=== PATIENT | male | born 1950 | race Caucasian/White ===

== ENCOUNTER 2021-04-06 09:52 | Day surgery (SDC) | payer MEDICARE, BC ==
[2021-04-06] MEDS ORDERED: Lidocaine 1% PF 5 ML VIAL ONE (10:29)
[2021-04-06] MEDS ORDERED: Sodium Bicarbonate 2.5 MEQ/5 ML VIAL ONE (10:30)
[2021-04-06 10:36] VITALS: BP 108/69; TEMP 97.5
[2021-04-07] MEDS ORDERED: FLU VACC QS2021-22(65YR UP)/PF 240 MCG/0.7 ML SYRINGE IM ONE (11:00)
== END 2021-04-06 12:15 | disposition home or self-care (01) ==
LOC: CSHRAD 09:52
PROVIDERS: ATTEND Surgery
DX: M54.50 Low back pain, unspecified (principal); M62.81 Muscle weakness (generalized); I70.0 Atherosclerosis of aorta; K57.30 Diverticulosis of large intestine without perforation or abscess without bleeding; Z98.1 Arthrodesis status
CPT/HCPCS: 62304; 72132

== ENCOUNTER 2021-10-20 11:08 | Outpatient (CLI) | payer MEDICARE, BC | END 2021-10-20 11:09 | disposition home or self-care (01) | LOC: CSHSPEC 11:08 | PROVIDERS: ATTEND Internal Medicine Rheumatology | DX: M06.9 Rheumatoid arthritis, unspecified (principal); Z95.0 Presence of cardiac pacemaker; M19.041 Primary osteoarthritis, right hand; M19.042 Primary osteoarthritis, left hand | CPT/HCPCS: 71045 ==

== ENCOUNTER 2021-10-20 13:16 | Outpatient (CLI) | payer MEDICARE, BC ==
[2021-10-21 00:49] LABS: SARS-CoV-2 PCR by NAA Not Detected (NotDetected)
== END 2021-10-20 13:17 | disposition home or self-care (01) ==
LOC: CSHLAB 13:16
PROVIDERS: ATTEND Family Medicine
DX: Z20.822 Contact with and (suspected) exposure to COVID-19 (principal)
CPT/HCPCS: U0003; U0005

== ENCOUNTER 2021-10-23 09:38 | Outpatient (CLI) | payer MEDICARE, BC | END 2021-10-23 09:39 | disposition home or self-care (01) | LOC: CSHRAD 09:38 | PROVIDERS: ATTEND Internal Medicine Gastroenterology | DX: R13.12 Dysphagia, oropharyngeal phase (principal); K21.9 Gastro-esophageal reflux disease without esophagitis; R93.3 Abnormal findings on diagnostic imaging of other parts of digestive tract | CPT/HCPCS: 74230 ==

== ENCOUNTER 2022-10-11 12:16 | Outpatient (CLI) | payer MEDICARE, BC ==
[~2022-10-11 12:16] MED LIST: Iopamidol-M 200 41% 10 ML VIAL FS ONE
[2022-10-11] MEDS ORDERED: Lidocaine 1% PF 5 ML VIAL ONE (12:41)
[2022-10-11] MEDS ORDERED: Sodium Bicarbonate 2.5 MEQ/5 ML VIAL ONE (12:42)
[2022-10-11 13:14] VITALS: BP 137/82; TEMP 97.8
[2022-10-11 13:37] VITALS: BMI 21.7
== END 2022-10-11 14:30 | disposition home or self-care (01) ==
LOC: CSHRAD 12:16
PROVIDERS: ATTEND Surgery
DX: G61.81 Chronic inflammatory demyelinating polyneuritis (principal); G95.9 Disease of spinal cord, unspecified; M51.36 Other intervertebral disc degeneration, lumbar region; Z98.890 Other specified postprocedural states
CPT/HCPCS: 62304; 72132; Q9966